=== PATIENT | female | born 1990 | race Hispanic/Latino ===

== ENCOUNTER 2017-07-02 07:46 | Day surgery (SDC) | payer OTHER ==
[2017-07-02] MEDS ORDERED: Lactated Ringer's 500 ML IV ONE (08:16)
[2017-07-02 11:10] VITALS: TEMP 98.1; O2SAT 99
[2017-07-02 11:19] VITALS: BP 103/63; PULSE 67; RESP 18
== END 2017-07-02 11:55 | disposition home or self-care (01) ==
LOC: H.ENDO 07:46
PROVIDERS: ATTEND Internal Medicine Gastroenterology
DX: K64.9 Unspecified hemorrhoids (principal); K62.5 Hemorrhage of anus and rectum; K63.3 Ulcer of intestine; K62.6 Ulcer of anus and rectum; K52.9 Noninfective gastroenteritis and colitis, unspecified; K92.2 Gastrointestinal hemorrhage, unspecified; K63.89 Other specified diseases of intestine
CPT/HCPCS: 45380; 88305; J7120